=== PATIENT | male | born 1985 | race African-American/Black ===

== ENCOUNTER 2023-12-14 15:13 | Observation (INO) | payer OTHER ==
[2023-12-14 15:24] VITALS: BMI 23.6
[2023-12-14] MEDS ORDERED: ACETAMINOPHEN 500 MG TABLET (FP) ONE (16:17)
[2023-12-14] MEDS: ACETAMINOPHEN 500 MG TABLET (FP) PO ONE (16:18)
[2023-12-14 16:23] LABS: BASO % 0.8 % (0-2.0); EOS % 3.4 % (0-4.5); HEMATOCRIT 43.7 % (35.4-49); HEMOGLOBIN 14.6 GM/dL (11.7-16.9); MCHC 33.4 g/dl (32.0-35.9); MEAN CELL VOLUME 77.8 fl (80-96); MEAN PLT VOLUME 8.1 fl (7.5-11.1); MONO % 12.4 % (3.8-10.2); NEUT % 43.4 % (42.8-82.8); PLATELET COUNT 229 10^3/uL (134-434); RBC 5.62 M/mm3 (4.00-5.60); RDW 14.7 % (11.9-15.9); WHITE BLOOD COUNT 5.1 K/mm3 (4.0-10.0)
[2023-12-14 16:28] LABS: INR 0.98 (0.83-1.09); PROTHROMBIN TIME (PATIENT) 11.1 SEC (9.7-13.0)
[2023-12-14 16:43] LABS: POTASSIUM 3.8 mmol/L (3.5-5.1)
[2023-12-14 16:45] LABS: ALBUMIN 3.9 g/dl (3.4-5.0); BLOOD UREA NITROGEN 14.5 mg/dL (7-18); CALCIUM 9.2 mg/dL (8.5-10.1)
[2023-12-14 16:49] LABS: CREATININE 1.1 mg/dL (0.55-1.3)
[2023-12-14 16:50] LABS: BILIRUBIN,TOTAL 0.7 mg/dL (0.2-1); TOT PROT 7.5 g/dl (6.4-8.2)
[2023-12-14] MEDS ORDERED: ASPIRIN 81 MG CHEWABLE TABLETS ONE (17:11)
[2023-12-14] MEDS: ASPIRIN 81 MG CHEWABLE TABLETS PO ONE (17:13)
[2023-12-15 07:47] LABS: HEMATOCRIT 42.4 % (35.4-49); HEMOGLOBIN 14.2 GM/dL (11.7-16.9); MCHC 33.4 g/dl (32.0-35.9); MEAN CELL VOLUME 77.7 fl (80-96); PLATELET COUNT 202 10^3/uL (134-434); RBC 5.45 M/mm3 (4.00-5.60); RDW 14.6 % (11.9-15.9)
[2023-12-15 08:08] LABS: CHLORIDE 103 mmol/L (98-107); POTASSIUM 3.9 mmol/L (3.5-5.1); SODIUM 139 mmol/L (136-145)
[2023-12-15 08:10] LABS: CALCIUM 9.1 mg/dL (8.5-10.1)
[2023-12-15 08:11] LABS: ALBUMIN 3.6 g/dl (3.4-5.0); ANION GAP 5 mmol/L (4-13); BLOOD UREA NITROGEN 11.7 mg/dL (7-18); CO2 31 mmol/L (21-32); GLUCOSE,RANDOM 104 mg/dL (74-106); MAGNESIUM 1.9 mg/dL (1.8-2.4)
[2023-12-15 08:14] LABS: CHOLESTEROL 151 mg/dL (50-200); PHOSPHOROUS 3.9 mg/dL (2.5-4.9); SGOT/AST 23 U/L (15-37); SGPT/ALT 19 U/L (13-61)
[2023-12-15 08:15] LABS: BILIRUBIN,TOTAL 0.8 mg/dL (0.2-1); LDL CHOLESTEROL (ONLY SJRH) 95 mg/dL (5-100); TOT PROT 7.2 g/dl (6.4-8.2)
[2023-12-15 08:16] LABS: ALK PHOS 46 U/L (45-117); HDL CHOLESTEROL 43 mg/dL (40-60)
[2023-12-15] MEDS: ENOXAPARIN NA (PORCINE) 40 MG/0.4 ML DISP.SYRIN SQ SCH (09:05)
[2023-12-15] MEDS: ACETAMINOPHEN 500 MG TABLET (FP) PO PRN (09:06)
[2023-12-15] MEDS ORDERED: LIDOCAINE 4% PATCH TP ONE (13:48)
[2023-12-15] MEDS: LIDOCAINE 5% TOPICAL PATCH TP ONE (15:30)
[2023-12-15 15:48] VITALS: BP 121/75; PULSE 62; RESP 17; TEMP 98.2
[2023-12-15] MEDS ORDERED: LIDOCAINE PATCH REMOVAL MC SCH (22:00)
== END 2023-12-15 18:40 | disposition home or self-care (01) ==
LOC: JERFT 15:13 → JER 15:13 → JERBED 18:19 → J4S 19:59
PROVIDERS: ADMIT Internal Medicine; ATTEND Internal Medicine
CPT/HCPCS: 36415; 71046-TC-FY; 80053; 80061; 82550; 82553; 83735; 83880; 84100; 84443; 84484; 85025; 85027; 85610; 85730; 86850; 86900; 86901; 93005; 93010; 93306-TC; 93308; 99285-25; G0378